=== PATIENT | female | born 2000 | race Caucasian/White ===

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

== ENCOUNTER → 2022-12-02 | Outpatient (REF) ==
[2022-12-02 11:34] LABS: RSV AMPLIFICATION NEGATIVE (NEGATIVE)
== END ==
LOC: M EMP 10:32
PROVIDERS: ATTEND Family Medicine
DX: Z20.818 Contact with and (suspected) exposure to other bacterial communicable diseases (principal)

== ENCOUNTER 2024-12-21 10:55 | Emergency (ER) | payer BC ==
[~2024-12-21] VITALS: Ht 162.6 cm; Wt 79.0 kg
[2024-12-21 10:55] VITALS: BP 152/91; TEMP 98.1; O2SAT 100
[2024-12-21] MEDS ORDERED: PROP60CA PO (11:00)
[2024-12-21] MEDS ORDERED: LEXA1TAB PO ×2 (11:00→11:05)
== END 2024-12-21 11:14 | disposition home or self-care (01) ==
LOC: M ED 10:55
DX: Z76.0 Encounter for issue of repeat prescription (principal); G43.909 Migraine, unspecified, not intractable, without status migrainosus; Z79.899 Other long term (current) drug therapy